=== PATIENT | female | born 1950 ===

== ENCOUNTER 2021-12-19 18:06 | Emergency (ER) ==
[2021-12-19] MEDS ORDERED: FURO40TA2 PO (18:27)
[2021-12-19] MEDS ORDERED: HYDR-3490 PO (18:27)
[2021-12-19] MEDS ORDERED: ENAL20TA11 PO (18:27)
== END 2021-12-19 20:56 | disposition left against medical advice (07) ==
LOC: M ED 18:06
DX: Z53.21 Procedure and treatment not carried out due to patient leaving prior to being seen by health care provider (principal)